=== PATIENT | female | born 1995 | race Caucasian/White ===

== ENCOUNTER 2018-01-18 02:20 | Emergency (ER) | payer BC ==
[~2018-01-18] VITALS: Ht 162.6 cm; Wt 54.1 kg
[2018-01-18 02:24] VITALS: TEMP 97.3
[2018-01-18] MEDS ORDERED: NUVARING VAG RING (02:31)
[2018-01-18 05:12] VITALS: BP 117/72; PULSE 83
== END 2018-01-18 05:16 | disposition home or self-care (01) ==
LOC: COL.ER 02:20
DX: F10.129 Alcohol abuse with intoxication, unspecified (principal); R11.2 Nausea with vomiting, unspecified; Y90.6 Blood alcohol level of 120-199 mg/100 ml
CPT/HCPCS: J2405; J7030

== ENCOUNTER 2018-04-07 14:19 | Emergency (ER) | payer BC ==
[~2018-04-07] VITALS: Ht 162.6 cm; Wt 61.4 kg
[~2018-04-07 14:19] MED LIST: NUVARING VAG RING
[2018-04-07 14:24] VITALS: BP 133/77; TEMP 98
[2018-04-07 15:20] VITALS: PULSE 57
== END 2018-04-07 15:26 | disposition home or self-care (01) ==
LOC: COL.ER 14:19
DX: R09.89 Other specified symptoms and signs involving the circulatory and respiratory systems (principal)